=== PATIENT | male | born 1980 | race African-American/Black ===

== ENCOUNTER 2017-11-12 10:12 | Emergency (ER) | payer OTHER ==
[~2017-11-12] VITALS: Ht 180.3 cm; Wt 104.3 kg
--- NOTE | ~2017-11-12 | EKG ---
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
[~2017-11-12 10:12] MED LIST: NAPROSYN500 MG PO
[2017-11-12 10:54] LABS: ABSOLUTE NEUTROPHILS 2.4 thou/uL (1.4-8.2); BASOPHILS 0.7 % (0.0-2.0); EOSINOPHILS 1.5 % (0.0-3.0); HEMATOCRIT 42.2 % (42.0-52.0); HEMOGLOBIN 14.4 gm/dL (14.0-18.0); LYMPHOCYTES 40.9 % (24.0-44.0); MCH 30.4 pg (26.0-34.0); MCHC 34.1 g/dL (28.0-37.0); MCV 89.1 fL (80.0-100.0); MONOCYTES 9.7 % (1.0-8.0); PLATELET COUNT 238 thou/uL (150-400); POLYS 47.2 % (36.0-66.0); RBC 4.73 mil/uL (4.50-6.00); RDW 14.3 % (10.5-14.5); WBC 5.1 thou/uL (4.0-11.0)
[2017-11-12 11:03] LABS: ANION GAP 10 mmol/L (7-16); BUN 13 mg/dL (7-18); CALCIUM 9.2 mg/dL (8.5-10.1); CHLORIDE 103 mmol/L (98-107); CO2 26 mmol/L (21-32); CREATININE 1.2 mg/dL (0.7-1.3); GLUCOSE 115 mg/dL (74-106); POTASSIUM 3.4 mmol/L (3.5-5.1); SODIUM 139 mmol/L (136-145)
[2017-11-12 11:12] LABS: ALBUMIN 3.9 g/dL (3.4-5.0); MAGNESIUM 2.1 mg/dL (1.8-2.4); SALICYLATE 2.8 mg/dL (2.8-20.0); SGOT 25 U/L (15-37); SGPT 38 U/L (30-65); TOTAL BILIRUBIN 0.5 mg/dL (<0.1-1.0); TOTAL PROTEIN 7.3 g/dL (6.4-8.2); TROPONIN-I < 0.04 ng/mL (<0.06)
[2017-11-12 11:56] LABS: URINE BILIRUBIN NEGATIVE (Negative); URINE BLOOD NEGATIVE (Negative); URINE CLARITY CLEAR; URINE COLOR YELLOW; URINE GLUCOSE-RANDOM* NEGATIVE (Negative); URINE KETONES NEGATIVE (Negative); URINE LEUKOCYTES-REFLEX NEGATIVE (Negative); URINE NITRITE-REFLEX NEGATIVE (Negative); URINE PROTEIN (DIPSTICK) NEGATIVE (Negative); URINE SPECIFIC GRAVITY <= 1.005 (1.005-1.035); URINE UROBILINOGEN 0.2 E.U./dl (0.2-1.0)
[2017-11-12 12:03] LABS: AMP/METHAMP Negative (Negative); BARBITURATES Negative (Negative); BENZODIAZEPINES Negative (Negative); COCAINE Negative (Negative); METHADONE Negative (Negative); OPIATES Negative (Negative); PCP POSITIVE (Negative)
[2017-11-12 12:30] VITALS: BP 146/91
== END 2017-11-12 12:37 | disposition home or self-care (01) ==
LOC: ER 10:12
PROVIDERS: Emergency Medicine
DX: F16.10 Hallucinogen abuse, uncomplicated (principal); R51 Headache; F12.10 Cannabis abuse, uncomplicated; F17.210 Nicotine dependence, cigarettes, uncomplicated

== ENCOUNTER 2019-04-18 19:57 | Emergency (ER) | payer OTHER ==
[~2019-04-18] VITALS: Ht 177.8 cm; Wt 104.3 kg
[2019-04-19 00:02] LABS: ABSOLUTE NEUTROPHILS 4.7 thou/uL (1.4-8.2); BASOPHILS 0.6 % (0.0-2.0); EOSINOPHILS 1.3 % (0.0-3.0); HEMATOCRIT 41.5 % (42.0-52.0); LYMPHOCYTES 37.7 % (24.0-44.0); MCH 30.8 pg (26.0-34.0); MCHC 33.8 g/dL (28.0-37.0); MCV 91.3 fL (80.0-100.0); MONOCYTES 7.1 % (1.0-8.0); PLATELET COUNT 250 thou/uL (150-400); POLYS 53.3 % (36.0-66.0); RBC 4.54 mil/uL (4.50-6.00); RDW 15.1 % (10.5-14.5); WBC 8.8 thou/uL (4.0-11.0)
[2019-04-19 00:09] LABS: CALCIUM 9.1 mg/dL (8.5-10.1); CREATININE 1.3 mg/dL (0.7-1.3); POTASSIUM 3.9 mmol/L (3.5-5.1)
[2019-04-19] MEDS ORDERED: NORCO 7.5-3251 EACH PO (01:32)
[2019-04-19] MEDS ORDERED: MEDROLDOSEPACK PO (01:32)
[2019-04-19] MEDS ORDERED: NAPROSYN500 M1 PO (01:32)
[2019-04-19 01:40] VITALS: BP 111/77
== END 2019-04-19 01:40 | disposition home or self-care (01) ==
LOC: ER 19:57
PROVIDERS: Emergency Medicine
DX: M70.72 Other bursitis of hip, left hip (principal); F17.210 Nicotine dependence, cigarettes, uncomplicated; Y93.89 Activity, other specified

== ENCOUNTER 2020-05-11 11:43 | Emergency (ER) | payer BC ==
[~2020-05-11] VITALS: Ht 180.3 cm; Wt 108.9 kg
[~2020-05-11 11:43] MED LIST changes: +MEDROLDOSEPACK PO; +NAPROSYN500 M1 PO; +NORCO 7.5-3251 EACH PO
[2020-05-11 15:44] LABS: RDW 14.9 % (10.5-14.5)
[2020-05-11 15:45] LABS: ABSOLUTE NEUTROPHILS 3.6 thou/uL (1.4-8.2); BASOPHILS 0.9 % (0.0-2.0); EOSINOPHILS 1.3 % (0.0-3.0); HEMATOCRIT 40.9 % (42.0-52.0); LYMPHOCYTES 32.4 % (24.0-44.0); MCH 31.2 pg (26.0-34.0); MCHC 34.1 g/dL (28.0-37.0); MCV 91.6 fL (80.0-100.0); MONOCYTES 6.5 % (1.0-8.0); PLATELET COUNT 255 thou/uL (150-400); POLYS 58.9 % (36.0-66.0); RBC 4.47 mil/uL (4.50-6.00); WBC 6.2 thou/uL (4.0-11.0)
[2020-05-11 15:53] LABS: CALCIUM 8.8 mg/dL (8.5-10.1); CREATININE 1.1 mg/dL (0.7-1.3); MAGNESIUM 2.1 mg/dL (1.8-2.4); POTASSIUM 3.8 mmol/L (3.5-5.1)
[2020-05-11 17:30] VITALS: BP 149/87
--- NOTE | 2020-05-12 11:37 | EKG ---
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
== END 2020-05-11 17:30 | disposition home or self-care (01) ==
LOC: ER 11:43
PROVIDERS: Emergency Medicine
DX: R04.2 Hemoptysis (principal); R42 Dizziness and giddiness; F17.210 Nicotine dependence, cigarettes, uncomplicated